=== PATIENT | male | born 1980 | race Caucasian/White ===

== ENCOUNTER 2020-10-13 19:04 | Emergency (ER) | payer OTHER, SELFPAY ==
[2020-10-13 20:13] VITALS: BP 134/116; PULSE 103; RESP 20; TEMP 36.7; O2SAT 95
--- NOTE | 2020-10-13 22:34 | PC.NURSE ---
1st call no answer
--- NOTE | 2020-10-13 22:44 | PC.NURSE ---
2nd call no answer
== END 2020-10-13 22:52 | disposition left against medical advice (07) ==
LOC: ANHED 22:49
DX: R05 Cough (principal)
CPT/HCPCS: 99199

== ENCOUNTER 2020-10-25 16:48 | Inpatient (IN) | payer OTHER, SELFPAY ==
--- NOTE | ~2020-10-25 | CT_ITS ---
EXAMINATION: CT abdomen pelvis w con DATE: 10/25/2020 19:01 INDICATION: Abdominal pain TECHNIQUE: Computed tomography (CT) of the abdomen and pelvis was performed with 100 mL Omnipaque-350 intravenous contrast. Automated exposure control and iterative reconstruction technique were employe d. The dose-length product was 303.69 mGy-cm. COMPARISON: None FINDINGS: Lung bases are clear. Heart size is normal. No pericardial or pleural effusion. Small sliding-type hi atal hernia. Diffuse hepatic steatosis. Common bile duct is dilated to 7 mm but there is no intrahepa tic biliary ductal dilation. Gallbladder, spleen, pancreas, bilateral adrenal glands and kidneys are normal. Bowels including the appendix are normal. Decompressed bladder is normal. No free intraperito brent gas or fluid. No pathologically enlarged abdominal or pelvic lymphadenopathy. Mild lower thoraci c kyphosis with chronic mild anterior wedging at T9-T12. IMPRESSION: 1. Common bile duct mildly dilated to 7 mm with no intrahepatic biliary ductal dilation. Correlate wi th liver function tests and could consider MRCP for further evaluation. 2. Marked diffuse hepatic steatosis. 3. Small sliding-type hiatal hernia. Reviewed, dictated and finalized at location A. IMPRESSION: 1. Common bile duct mildly dilated to 7 mm with no intrahepatic biliary ductal dilation. Correlate with liver function tests and could consider MRCP for furth er evaluation. 2. Marked diffuse hepatic steatosis. 3. Small sliding-type hiatal hernia.
[2020-10-25 16:53] VITALS: BP 153/94; PULSE 119; RESP 22; TEMP 36.4; O2SAT 97
--- NOTE | 2020-10-25 16:59 | ECG_ITS ---
Measurements Intervals [place] Rate: 102 P: 12 [place]: 135 QRS: -28 QRSD: 89 T: 63 QT: 340 QTc: 445 Interpretive Statements SINUS TACHYCARDIA FREQUENT VENTRICULAR PREMATURE COMPLEXES POSSIBLE LEFT ATRIAL ENLARGEMENT BORDERLINE R WAVE PROGRESSION, ANTERIOR LEADS BORDERLINE ST-T WAVE ABNORMALITY- HIGH LATERAL LEADS ABNORMAL ECG Electronically Signed On 10-25-2020 20:09:04 CDT by Adam Wallace D.O.
[2020-10-25 17:18] LABS: Basophils Percent Auto 0.1 % (0.2-1.2); Eosinophils Percent Auto 0.1 % (0-4.4); Hematocrit 51.7 % (42.0-52.0); Hemoglobin 17.5 g/dL (14.0-18.0); Immature Granulocyte Absolute 0.02 K/mm3 (0.00-0.031); Immature Granulocyte Percent A 0.2 % (0-0.5); Lymphocytes Absolute Auto 1.36 K/mm3 (0.9-3.2); Lymphocytes Percent Auto 15.4 % (18.3-44.2); Mean Corpuscular HGB Conc 33.8 g/dl (32-36); Mean Corpuscular Hemoglobin 32.1 pg (26-34); Mean Corpuscular Volume 94.9 fl (80-100); Mean Platelet Volume 9.2 fl (7.4-10.4); Monocytes Percent Auto 11.6 % (2.6-8.5); Neutrophils Absolute Auto 6.4 K/mm3 (1.3-6.7); Neutrophils Percent Auto 72.6 % (45.5-73.1); Platelet Count Result 236 k/mm3 (150-375); Red Blood Count 5.45 M/mm3 (4.6-6.20); Red Cell Distribution Width 13.9 % (11.5-14.5); White Blood Count 8.8 K/mm3 (4.5-10.0)
[2020-10-25 17:29] LABS: Alanine Aminotransferase 358 U/L (4-50); Albumin Level 4.7 g/dL (3.5-5.1); Alkaline Phosphatase 283 U/L (38-126); Anion Gap 15 mmol/L (8-16); Aspartate Amino Transferase 734 U/L (17-59); Bilirubin,Total 2.1 mg/dL (0.2-1.3); Blood Urea Nitrogen 10 mg/dL (9-20); Calcium 9.3 mg/dL (8.4-10.2); Carbon Dioxide 33 mmol/L (22-30); Chloride 90 mmol/L (98-107); Estimated CRCL calculation 119 ml/min; Estimated Glomerular Filt Rate > 60; Glucose 125 mg/dL (65-110); Lipase 226 U/L (23-300); Potassium 3.6 mmol/L (3.4-5.0); Sodium 138 mmol/L (137-145)
--- NOTE | 2020-10-25 18:32 | ED.ALCOHOL ---
HPI - Alcohol General Chief Complaint: Alcohol Stated Complaint: n/v, drinking ETOH on methadone Time Seen by Provider: 10/25/20 18:00 History of Present Illness HPI narrative: Patient presents with nausea and vomiting. Patient ports a history of alcohol abuse and severe withdrawal requiring admission. [place] last admission was a couple months ago at [facility]. Reports he required intubation at that time since then he reported sore throat that caused him to drink heavily over these past couple months. For the past couple days has been unable to eat or drink anything and is concerned saline to come in for evaluation. Denies any abdominal pain denies any dizziness reports he is feels terrible all over. Related Data Allergies Allergy/AdvReac Type Severity Reaction Status Date / Time codeine Allergy Mild Verified 12/15/18 21:05 Review of Systems Review of Systems: CONSTITUTIONAL: Denies fever, chills, or sweats. EYES: Denies visual changes, redness, or discharge. ENT: Denies rhinorrhea, congestion, sore throat, or otalgia. CARDIOVASCULAR: Denies chest pain, palpitations, or edema. RESPIRATORY: Denies cough or dyspnea. GASTROINTESTINAL: Denies abdominal pain, or diarrhea. GENITOURINARY: Denies dysuria or hematuria. SKIN: Denies rash or itching. MUSCULOSKELETAL: Denies back pain, joint pain, or myalgia. NEUROLOGIC: Denies headache, numbness, dizziness, or weakness. PSYCHIATRIC: Denies anxiety or depression. All systems reviewed & are unremarkable except as noted in HPI and below Exam Narrative: GENERAL: Well-appearing, well-nourished, with active emesis HEAD: Normocephalic, atraumatic. EYES: PERRLA and EOMI. ENT: Nares clear, no rhinorrhea or epistaxis. Mucous membranes moist. NECK: Supple. No masses. No JVD CHEST: Clear to auscultation. No respiratory distress. No wheezes rales or rhonchi HEART: Regular rate and rhythm. No murmur heard. Normal peripheral pulses. ABDOMEN: Moderate diffuse tenderness nondistended EXTREMITIES: Normal range of motion. No edema. SKIN: Warm, dry, no rash. NEURO: No focal deficits. Alert and oriented x3. PSYCH: Normal mood and affect. Course Reevaluation(s) Reevaluation #1: Patient reports continues have symptoms labs concerning for alcoholic hepatitis. Imaging without acute process Case discussed with Dr. Mendez who agrees symptoms are likely alcoholic hepatitis. We will continue supportive therapies unable to have patient p.o. tolerant will admit for further management Date: 10/25/20 Time: 19:44 Vital Signs Vital signs: Vital Signs Temperature 36.4 C 10/25/20 16:53 Pulse Rate 119 H 10/25/20 16:53 Respiratory Rate 22 H 10/25/20 16:53 Blood Pressure 153/94 H 10/25/20 16:53 Pulse Oximetry 97 10/25/20 16:53 Temperature 36.4 C 10/25/20 16:53 Pulse Rate 78 10/25/20 20:36 Respiratory Rate 13 10/25/20 20:36 Blood Pressure 157/110 H 10/25/20 20:36 Pulse Oximetry 97 10/25/20 20:36 MDM - Alcohol MDM Narrative Medical decision making narrative: Patient presents with nausea vomiting and p.o. intolerance over the past 5 days patient ports symptoms related to his alcohol binge since his prior admission proxy 1 month ago. Patient had no active emesis during evaluation. Labs imaging obtained labs notable for elevated LFTs imaging clinically unremarkable for acute process. Given patient's elevated LFTs primary concerns for alcoholic hepatitis. Given patient's p.o. intolerance here in the ER patient was admitted for further management and laboratory trending Lab Data Result diagrams: 10/25/20 16:58 10/25/20 16:59 Labs: Lab Results 10/25/20 10/25/20 10/25/20 Range/Units 16:58 16:59 18:00 WBC 8.8 (4.5-10.0) K/mm3 RBC 5.45 (4.6-6.20) M/mm3 Hgb 17.5 (14.0-18.0) g/dL Hct 51.7 (42.0-52.0) % MCV 94.9 (80-100) fl MCH 32.1 (26-34) pg MCHC 33.8 (32-36) g/dl RDW 13.9 (11.5-14.5) % Plt Count 236 (
[2020-10-25] MEDS: SODIUM CHLORIDE 0.9% IV 1,000 ML 999 ML IV CONT (18:53)
[2020-10-25] MEDS: ONDANSETRON INJ 4 MG/2 ML VIAL IV PUSH ×2 (18:53→19:51)
[2020-10-25] MEDS: KETOROLAC 15 MG/ML VIAL (*BKC) IV PUSH (19:51)
[2020-10-25 19:57] LABS: Beta-Hydroxybutyrate/Acetoacetate 0.07 mmol/L (0.02-0.27)
[2020-10-25 20:13] LABS: Ethanol 214 mg/dL (<10)
[2020-10-25] MEDS: PROMETHAZINE HCL 25 MG/ML AMPUL 12.5 MG IV PUSH (20:29)
[2020-10-25 20:36] VITALS: BP 157/110; PULSE 78; RESP 13; O2SAT 97
[2020-10-25 21:58] LABS: Add Urine Microscopic? YES; Appearance Urine Clear (Clear); Bilirubin Urine Negative (Negative); Blood Urine Negative (Negative); Color Urine Yellow (Yellow); Glucose Urine UA Negative (Negative); Ketones Urine Negative (Negative); Leukocyte Esterase Ur Negative LEU/UL (Negative); Nitrate Urine Negative (Negative); Protein Urine 1+ mg/dL (Negative); WBC Urine 0-3 /hpf
[2020-10-25] MEDS: LORazepam INJ (*CRX) 2 MG/ML VIAL 0.5 MG IV PUSH (22:00)
[2020-10-25 22:03] LABS: Amphetamine Screen Urine Negative (Negative); Barbiturate Screen Urine Positive (Negative); Benzodiazepines Screen Urine Positive (Negative); Cannabinoid Screen Urine Negative (Negative); Cocaine Screen Urine Negative (Negative); Methadone Screen Urine Positive (Negative); Opiate Screen Urine Negative (Negative); Phencyclidine Screen Urine Negative (Negative)
[2020-10-25 22:04] LABS: INR 1.2; Prothrombin Time 14.6 Seconds (11.1-14.7)
[2020-10-25 22:05] LABS: Specific Grav Ur 1.005 (1.001-1.035)
[2020-10-25 22:29] VITALS: BP 163/119; PULSE 77; RESP 12; O2SAT 98
--- NOTE | 2020-10-25 23:40 | ADMGEN ---
This patient, Guido Villagomez, was admitted to 2 Medical Room 256-. Patient/family oriented to hospital policies and general routines including ID bracelet, bed and alarms, visiting hours, pain management, procedures, bathroom and other care routines, personal items, smoking policy, room service/diet, and visiting hours. Information on how to activate the Rapid Response Team has been discussed. Patient/Family are encouraged to report perceived risks to care and to ask questions if they do not understand what they are told or what they should do.
[2020-10-25 23:42] VITALS: BMI 23.2
[2020-10-25 23:43] VITALS: BP 157/98; PULSE 96; RESP 18; TEMP 36.2; O2SAT 99
[2020-10-26] VITALS (16 sets, daily range): BP systolic 143–162; BP diastolic 89–97; PULSE 60–110; RESP 16–21; TEMP 36.1–37.2; O2SAT 97–100
[2020-10-26] MEDS: LACTATED RINGERS 1,000 ML 125 ML IV CONT ×2 (00:03→07:55)
[2020-10-26] MEDS: ONDANSETRON INJ 4 MG/2 ML VIAL IV PUSH ×5 (00:07→20:20)
[2020-10-26] MEDS: chlordiazePOXIDE (*CRX) 25 MG CAPSULE 50 MG PO ×4 (00:47→17:36)
[2020-10-26] MEDS: LORazepam INJ (*CRX) 2 MG/ML VIAL 1 MG IV PUSH ×5 (00:48→20:19)
--- NOTE | 2020-10-26 01:20 | PM.IMHP ---
H&P: HPI History of Present Illness Date/Time: 10/26/20 01:20 Chief Complaint: nausea vomiting Narrative: the patient is a 40-year-old male with history of alcohol abuse, his history of alcohol withdrawal with DTs in the past requiring intubation presents with nausea and vomiting over the past few days. He also reports continued drinking since past couple months. He reports for the past couple of days he has not been able to eat or drink and hence came in for evaluation. He denies any abdominal pain dizziness. He feels terrible and has generalized pain and achiness all over his body. No fever or chills per se. in the ED he was noted to have alcohol level of 214 UDS positive for benzos barbiturates and methadone urine is negative he had elevated liver enzymes with AST ALT in 100s Diane phosphorus elevated in 200s metabolic alkalosis INR of 1.2. CT scan of the abdomen was done which showed common bile duct mildly dilated to 7 mm with no intrahepatic biliary duct dilatation. And marked diffuse hepatic steatosis. Since admission he has developed some tremors suggestive of alcohol withdrawal. He also states he is on methadone 160 mg every day and has been taking it every day however he was throwing up and hands thinks might not have absorbed as much. Review of Systems Review of Systems: - CONSTITUTIONAL: Denies weight loss, fever and Reports chills. - HEENT: Denies changes in vision and hearing - RESPIRATORY: Denies SOB and cough. - CV: Denies palpitations and CP. - GI: Denies abdominal pain, reports nausea, vomiting and denies diarrhea. - : Denies dysuria and urinary frequency. - MSK: reports myalgia and denies joint pain. - SKIN: Denies rash and pruritus. - NEUROLOGICAL: Denies headache and syncope. - PSYCHIATRIC: Denies recent changes in mood. Denies anxiety and depression. All systems reviewed & are unremarkable except as noted in HPI and below Constitutional: Constitutional: Reports fatigue and Reports weakness Neurologic: Reports weakness Endocrine: Endocrine: Reports fatigue [facility] Family History Family History (Updated 10/25/20 @ 23:50 by Mary Parsons RN) Father Throat cancer Social History Social History Smoking packs per day: 1 Smoking cigarettes per day: 20.0 Years smoked: 20 Smoking pack-years: 20.00 Smoking status: Current every day smoker Tobacco type: cigarettes Alcohol intake: current Drinks per week: 40 Substance use type: heroin Other substance usage details: unsure what else he took Spiritual care concerns: No Meds Home Medications and Allergies Home Medications Medication Instructions Recorded Confirmed Type methadone 160 mg PO DAILY 10/25/20 10/25/20 History Allergies Allergy/AdvReac Type Severity Reaction Status Date / Time codeine Allergy Mild Verified 12/15/18 21:05 Vital Signs Vital Signs - 24 hr 10/25/20 16:53 10/25/20 20:36 10/25/20 22:29 Temperature 97.6 F Pulse Rate 119 H 78 77 Pulse Rate [Monitor] Respiratory Rate 22 H 13 12 Blood Pressure 153/94 H 157/110 H 163/119 H Pulse Oximetry 97 97 98 10/25/20 23:43 10/26/20 00:17 10/26/20 00:38 Temperature 97.2 F L Pulse Rate 96 90 Pulse Rate [Monitor] 110 H Respiratory Rate 18 Blood Pressure 157/98 H Pulse Oximetry 99 Exam Narrative: GENERAL: Well-appearing, well-nourished, tremulous, in mild distress HEAD: Normocephalic, atraumatic. EYES: PERRLA and EOMI. ENT: Nares clear, no rhinorrhea or epistaxis. Mucous membranes dry NECK: Supple. No masses. No JVD CHEST: Clear to auscultation. No respiratory distress. No wheezes rales or rhonchi HEART: Regular rate and rhythm. No murmur heard. Normal peripheral pulses. ABDOMEN: soft, mild distension mild tenderness diffuse the present no organomegaly EXTREMITIES: Normal range of motion. No edema. SKIN: Warm, dry, no rash. NEURO: No
[2020-10-26] MEDS: cloNIDine HCL 0.1 MG TABLET PO ×3 (01:56→17:36)
[2020-10-26 05:46] LABS: Basophils Percent Auto 0.5 % (0.2-1.2); Eosinophils Percent Auto 0.3 % (0-4.4); Hematocrit 39.6 % (42.0-52.0); Hemoglobin 13.5 g/dL (14.0-18.0); Immature Granulocyte Absolute 0.02 K/mm3 (0.00-0.031); Immature Granulocyte Percent A 0.2 % (0-0.5); Lymphocytes Absolute Auto 1.81 K/mm3 (0.9-3.2); Lymphocytes Percent Auto 20.6 % (18.3-44.2); Mean Corpuscular HGB Conc 34.1 g/dl (32-36); Mean Corpuscular Hemoglobin 32.4 pg (26-34); Mean Platelet Volume 8.8 fl (7.4-10.4); Monocytes Percent Auto 11.8 % (2.6-8.5); Neutrophils Absolute Auto 5.8 K/mm3 (1.3-6.7); Neutrophils Percent Auto 66.6 % (45.5-73.1); Platelet Count Result 169 k/mm3 (150-375); Red Blood Count 4.17 M/mm3 (4.6-6.20); Red Cell Distribution Width 13.4 % (11.5-14.5); White Blood Count 8.8 K/mm3 (4.5-10.0)
[2020-10-26 07:01] LABS: Alanine Aminotransferase 232 U/L (4-50); Albumin Level 3.1 g/dL (3.5-5.1); Alkaline Phosphatase 192 U/L (38-126); Anion Gap 8 mmol/L (8-16); Aspartate Amino Transferase 619 U/L (17-59); Bilirubin,Total 2.5 mg/dL (0.2-1.3); Blood Urea Nitrogen 11 mg/dL (9-20); Calcium 8.2 mg/dL (8.4-10.2); Carbon Dioxide 32 mmol/L (22-30); Chloride 94 mmol/L (98-107); Estimated CRCL calculation 119 ml/min; Estimated Glomerular Filt Rate > 60; Glucose 46 mg/dL (65-110); Potassium 3.6 mmol/L (3.4-5.0); Sodium 134 mmol/L (137-145)
[2020-10-26 07:44] LABS: Glucose Point of Care 110 mg/dl (65-105)
[2020-10-26 07:44] LABS: Glucose Point of Care 60 mg/dl (65-105)
[2020-10-26] MEDS: methADONE HCL (*CRX) 10 MG TABLET 160 MG PO (10:26)
[2020-10-26] MEDS: NICOTINE (*PBKC) 21 MG PATCH 1 PATCH TRANSDERM (11:30)
--- NOTE | 2020-10-26 13:40 | PM.IMPN ---
Progress Note: A&P Assessment and Plan (1) Alcohol withdrawal: Qualifiers: Complication of substance-induced condition: uncomplicated Qualified Code(s): F10.230 - Alcohol dependence with withdrawal, uncomplicated Code(s): F10.239 - Alcohol dependence with withdrawal, unspecified Status: Acute Assessment and Plan: -Patient would like to stop drinking alcohol, last drink 2 days ago, currently withdrawing, continue Librium and clonidine scheduled and will watch LFTs. CIWA protocol with p.r.n. Ativan q.4 hours. He was intubated in the past, will continue monitoring. -currently symptoms are tremors, no hallucinations, mentation is intact, oriented -Zofran for nausea -continue IV fluids (2) Alcoholic hepatitis: Qualifiers: Ascites presence: unspecified Qualified Code(s): K70.10 - Alcoholic hepatitis without ascites Code(s): K70.10 - Alcoholic hepatitis without ascites Status: Acute Assessment and Plan: Discriminant function checked, not indicated for steroids at this time. Will trend LFTs. supportive care (3) Alcohol abuse: Code(s): F10.10 - Alcohol abuse, uncomplicated Status: Acute Assessment and Plan: Will provide resources for alcoholics anonymous (4) Opiate dependence: Qualifiers: Substance use status: in remission Qualified Code(s): F11.21 - Opioid dependence, in remission Code(s): F11.20 - Opioid dependence, uncomplicated Status: Acute Assessment and Plan: -Longstanding use of methadone, continue home methadone 160 mg daily, confirmed with methadone clinic on 10/26/2020 -he may also used heroin (5) Nicotine dependence: Qualifiers: Nicotine product type: cigarettes Substance use status: uncomplicated Qualified Code(s): F17.210 - Nicotine dependence, cigarettes, uncomplicated Code(s): F17.200 - Nicotine dependence, unspecified, uncomplicated Status: Acute Assessment and Plan: Will provide nicotine patch as needed (6) Inspiratory stridor: Code(s): R06.1 - Stridor Status: Acute Assessment and Plan: Patient has inspiratory stridor/dysphonia since intubation for alcoholic withdrawal in May or July of this year. Patient can follow-up outpatient with ENT. Additional Plan Diet: Regular DVT prophylaxis: Lovenox Code status: Full code Disposition: Pending clinical course, likely outpatient alcoholic rehab after completing detox Time Spent With Patient Time with patient: 15 - 25 minutes Subjective Date/time seen: 10/26/20 13:40 Patient seen examined. We verified his methadone dose today, 160 mg daily. He is going through alcohol withdrawals CIWA score 12, will continue closely monitoring him as he has had significant withdrawals requiring intubation in the past. He has some dysphonia from previous intubation back in May and was told it will go away on its own. I informed we can give him a outpatient referral to ENT. He came to the hospital for alcohol detox, we will continue detox see him. Has been 2 days since last drink. This is on pretty high dose Librium 50 mg q.6 hours was we will keep for now considering his withdrawals. He feels slightly nauseous for which we have Zofran ordered. Patient denies fever, chills, diarrhea, emesis, constipation, chest pain, abdominal pain. Review of Systems Review of Systems: All systems reviewed & are unremarkable except as noted in HPI and below Exam Narrative: - GENERAL: Pleasant male in no acute distress sitting comfortably in bed, clearly withdrawing with tremors - EYES: EOMI. Slightly icteric sclera. - HENT: Moist mucous membranes. Inspiratory stridor present (longstanding as per patient since previous intubation earlier this year) - LUNGS: Clear to auscultation bilaterally, no wheezing, rhonchi, or rales. - CARDIOVASCULAR: Regular rate and rhythm. No murmur. No JVD. - ABDOMEN: Soft, non-tender and non-diste
[2020-10-26] MEDS: LACTATED RINGERS 1,000 ML 75 ML IV CONT (14:51)
[2020-10-26] MEDS: PHARMACIST COMMUNICATION ORDER 1 EACH XX (14:59)
[2020-10-27] VITALS (12 sets, daily range): BP systolic 121–157; BP diastolic 86–96; PULSE 55–72; RESP 20; TEMP 36.1–36.6; O2SAT 98
[2020-10-27] MEDS: chlordiazePOXIDE (*CRX) 25 MG CAPSULE 50 MG PO ×4 (00:11→17:23)
[2020-10-27] MEDS: cloNIDine HCL 0.1 MG TABLET PO ×3 (00:24→17:23)
[2020-10-27] MEDS: LACTATED RINGERS 1,000 ML 75 ML IV CONT ×2 (03:56→17:23)
[2020-10-27 05:55] LABS: Hematocrit 38.6 % (42.0-52.0); Hemoglobin 12.7 g/dL (14.0-18.0); Immature Platelet Fraction Pct 2.6 % (0.9-11.2); Mean Corpuscular HGB Conc 32.9 g/dl (32-36); Mean Corpuscular Hemoglobin 32.2 pg (26-34); Mean Platelet Volume 9.2 fl (7.4-10.4); Platelet Count Result 157 k/mm3 (150-375); Red Blood Count 3.94 M/mm3 (4.6-6.20); Red Cell Distribution Width 13.2 % (11.5-14.5); White Blood Count 5.2 K/mm3 (4.5-10.0)
[2020-10-27 06:06] LABS: Alanine Aminotransferase 209 U/L (4-50); Alkaline Phosphatase 262 U/L (38-126); Anion Gap 4 mmol/L (8-16); Aspartate Amino Transferase 512 U/L (17-59); Bilirubin,Total 2.3 mg/dL (0.2-1.3); Blood Urea Nitrogen 7 mg/dL (9-20); Carbon Dioxide 34 mmol/L (22-30); Chloride 94 mmol/L (98-107); Estimated CRCL calculation 119 ml/min; Estimated Glomerular Filt Rate > 60; Glucose 89 mg/dL (65-110); Magnesium 1.1 mg/dL (1.6-2.3); Phosphorus 4.1 mg/dL (2.5-4.5); Potassium 3.1 mmol/L (3.4-5.0); Sodium 132 mmol/L (137-145)
[2020-10-27] MEDS: methADONE HCL (*CRX) 10 MG TABLET 160 MG PO (08:11)
[2020-10-27] MEDS: LORazepam INJ (*CRX) 2 MG/ML VIAL 1 MG IV PUSH ×2 (08:12→13:54)
[2020-10-27] MEDS: POTASSIUM CHLORIDE 20 MEQ TABLET 40 MEQ PO ×2 (08:12→13:58)
[2020-10-27] MEDS: NICOTINE (*PBKC) 21 MG PATCH 1 PATCH TRANSDERM (08:13)
[2020-10-27] MEDS: ONDANSETRON INJ 4 MG/2 ML VIAL IV PUSH (08:23)
[2020-10-27] MEDS: MAGNESIUM SULF 4 GM/WATER100ML 4 GM/100 ML BAG IVPB (09:41)
[2020-10-27] MEDS: PANTOPRAZOLE 40 MG TABLET PO (12:24)
--- NOTE | 2020-10-27 13:39 | PM.IMPN ---
Progress Note: A&P Assessment and Plan (1) Alcoholic hepatitis: Qualifiers: Ascites presence: unspecified Qualified Code(s): K70.10 - Alcoholic hepatitis without ascites Code(s): K70.10 - Alcoholic hepatitis without ascites Status: Acute Assessment and Plan: -LFTs are downtrending, patient was not candidate for steroids based off of discriminant function -supportive care, continue IV fluids (2) Alcohol withdrawal: Qualifiers: Complication of substance-induced condition: uncomplicated Qualified Code(s): F10.230 - Alcohol dependence with withdrawal, uncomplicated Code(s): F10.239 - Alcohol dependence with withdrawal, unspecified Status: Acute Assessment and Plan: -CIWA symptomatic protocol, continue Librium 50 mg q.6 hours, will start tapering tomorrow, continue clonidine. -resources provided for alcohol abuse (3) Nausea & vomiting: Qualifiers: Vomiting Intractability: intractable Vomiting type: unspecified Qualified Code(s): R11.2 - Nausea with vomiting, unspecified Code(s): R11.2 - Nausea with vomiting, unspecified Status: Acute Assessment and Plan: -Improved, continue p.r.n. Zofran -patient complains of epigastric pain, starting Protonix for possible gastritis and p.r.n. Tums (4) Electrolyte abnormality: Code(s): E87.8 - Other disorders of electrolyte and fluid balance, not elsewhere classified Status: Acute Assessment and Plan: -repleting magnesium and potassium, 4 g Mag today and 80 mEq potassium -secondary poor nutrition with alcohol abuse (5) Inspiratory stridor: Code(s): R06.1 - Stridor Status: Acute Assessment and Plan: Longstanding since May 2020 after intubation for alcohol withdrawal. Patient may follow-up with ENT outpatient (6) Nicotine dependence: Qualifiers: Nicotine product type: cigarettes Substance use status: uncomplicated Qualified Code(s): F17.210 - Nicotine dependence, cigarettes, uncomplicated Code(s): F17.200 - Nicotine dependence, unspecified, uncomplicated Status: Acute Assessment and Plan: Nicotine patch given (7) Alcohol abuse: Code(s): F10.10 - Alcohol abuse, uncomplicated Status: Acute Assessment and Plan: As above (8) Hypoglycemia: Code(s): E16.2 - Hypoglycemia, unspecified Status: Acute Assessment and Plan: -improved, glucose low of 46 on 10/26/20. His blood sugar improved after given some food. No history of diabetes (9) Opiate dependence: Qualifiers: Substance use status: in remission Qualified Code(s): F11.21 - Opioid dependence, in remission Code(s): F11.20 - Opioid dependence, uncomplicated Status: Acute Assessment and Plan: -Continue home methadone 160 mg daily Additional Plan Diet: Regular DVT prophylaxis: Lovenox GI prophylaxis: Protonix Code status: Full code Disposition: Pending clinical course, alcohol detox inpatient Time Spent With Patient Time with patient: 25 - 35 minutes Subjective Date/time seen: 10/27/20 13:39 Patient examined. He is getting anxious and starting to hallucinate. Today is day 3 of his alcohol detox, anticipate this should be the worst of his symptoms. We will continue Librium as is start tapering tomorrow. Continue IV fluids, patient has decreased p.o. intake. He has not had any problems on telemetry since admission, normal sinus rhythm. Complained of epigastric pain in I discussed starting PPI and p.r.n. tums. He denies fever, chills, nausea, vomiting, diarrhea. He endorses seeing hallucinations, getting frustrated about detox. Review of Systems Review of Systems: All systems reviewed & are unremarkable except as noted in HPI and below Exam Narrative: - GENERAL: Pleasant male appears anxious sitting in bed, less tremulous today however he was more somnolent, he evaluated after Ativan was give
[2020-10-28] VITALS (8 sets, daily range): BP systolic 148–154; BP diastolic 93–98; PULSE 54–96; RESP 15–21; TEMP 36–36.1; O2SAT 100
[2020-10-28] MEDS: chlordiazePOXIDE (*CRX) 25 MG CAPSULE 50 MG PO ×4 (00:43→21:25)
[2020-10-28] MEDS: cloNIDine HCL 0.1 MG TABLET PO ×3 (00:43→16:52)
[2020-10-28 06:19] LABS: Alanine Aminotransferase 166 U/L (4-50); Albumin Level 3.2 g/dL (3.5-5.1); Alkaline Phosphatase 247 U/L (38-126); Anion Gap 2 mmol/L (8-16); Aspartate Amino Transferase 322 U/L (17-59); Blood Urea Nitrogen 7 mg/dL (9-20); Calcium 8.4 mg/dL (8.4-10.2); Carbon Dioxide 30 mmol/L (22-30); Chloride 99 mmol/L (98-107); Estimated CRCL calculation 119 ml/min; Estimated Glomerular Filt Rate > 60; Glucose 113 mg/dL (65-110); Magnesium 1.8 mg/dL (1.6-2.3); Potassium 4.6 mmol/L (3.4-5.0); Sodium 131 mmol/L (137-145)
[2020-10-28] MEDS: LACTATED RINGERS 1,000 ML 75 ML IV CONT (06:41)
--- NOTE | 2020-10-28 07:10 | PM.IMPN ---
Progress Note: A&P Assessment and Plan (1) Alcoholic hepatitis: Qualifiers: Ascites presence: unspecified Qualified Code(s): K70.10 - Alcoholic hepatitis without ascites Code(s): K70.10 - Alcoholic hepatitis without ascites Status: Acute Assessment and Plan: -LFTs are downtrending, patient was not candidate for steroids based off of discriminant function -supportive care Will change fluids from LR to normal saline because of down trend in serum sodium. (2) Alcohol withdrawal: Qualifiers: Complication of substance-induced condition: uncomplicated Qualified Code(s): F10.230 - Alcohol dependence with withdrawal, uncomplicated Code(s): F10.239 - Alcohol dependence with withdrawal, unspecified Status: Acute Assessment and Plan: -[facility] symptomatic protocol, will start tapering of Librium today. I will decrease the dose from 50 mg q.6 to 50 mg q.8 are today. continue clonidine. Continue Ativan on a as needed basis based on [facility] protocol. -resources provided for alcohol abuse Blood pressure seems to be elevated today but likely as a result of alcohol withdrawal. (3) Nausea & vomiting: Qualifiers: Vomiting Intractability: intractable Vomiting type: unspecified Qualified Code(s): R11.2 - Nausea with vomiting, unspecified Code(s): R11.2 - Nausea with vomiting, unspecified Status: Acute Assessment and Plan: -Improved, continue p.r.n. Zofran -patient complains of epigastric pain, starting Protonix for possible gastritis and p.r.n. Tums (4) Electrolyte abnormality: Code(s): E87.8 - Other disorders of electrolyte and fluid balance, not elsewhere classified Status: Acute Assessment and Plan: -repleting magnesium and potassium is indicated -secondary to poor nutrition with alcohol abuse (5) Inspiratory stridor: Code(s): R06.1 - Stridor Status: Acute Assessment and Plan: Longstanding since May 2020 after intubation for alcohol withdrawal. Patient may follow-up with ENT outpatient He is not in any respiratory distress and not complaining of any shortness of breath or cough (6) Nicotine dependence: Qualifiers: Nicotine product type: cigarettes Substance use status: uncomplicated Qualified Code(s): F17.210 - Nicotine dependence, cigarettes, uncomplicated Code(s): F17.200 - Nicotine dependence, unspecified, uncomplicated Status: Acute Assessment and Plan: Nicotine patch (7) Alcohol abuse: Code(s): F10.10 - Alcohol abuse, uncomplicated Status: Acute Assessment and Plan: As above Continue thiamine and folate. (8) Hypoglycemia: Code(s): E16.2 - Hypoglycemia, unspecified Status: Acute Assessment and Plan: -improved, glucose low of 46 on 10/26/20. His blood sugar improved after given some food. No history of diabetes (9) Opiate dependence: Qualifiers: Substance use status: in remission Qualified Code(s): F11.21 - Opioid dependence, in remission Code(s): F11.20 - Opioid dependence, uncomplicated Status: Acute Assessment and Plan: -Continue home methadone 160 mg daily Additional Plan Diet: Regular DVT prophylaxis: Lovenox GI prophylaxis: Protonix Code status: Full code Disposition: Pending clinical course, alcohol detox inpatient Subjective Date/time seen: 10/28/20 07:10 He is still tremulous. He is requiring 2 doses of Ativan on p.r.n. basis in addition to Librium. He denied have any chest pain shortness of breath nausea vomiting abdominal pain visual symptoms weakness in any part of his body. Review of Systems Review of Systems: All systems reviewed & are unremarkable except as noted in HPI and below Exam Narrative: - GENERAL: Pleasant male appears anxious sitting in bed - HENT: Moist mucous membranes. Very audible inspiratory stridor present (longstanding as per patient
[2020-10-28] MEDS: SODIUM CHLORIDE 0.9% IV 1,000 ML 75 ML IV CONT ×2 (08:08→21:24)
[2020-10-28] MEDS: PANTOPRAZOLE 40 MG TABLET PO (08:42)
[2020-10-28] MEDS: NICOTINE (*PBKC) 21 MG PATCH 1 PATCH TRANSDERM (08:42)
[2020-10-28] MEDS: methADONE HCL (*CRX) 10 MG TABLET 160 MG PO (08:44)
[2020-10-29] MEDS: cloNIDine HCL 0.1 MG TABLET PO ×2 (01:04→08:44)
[2020-10-29 04:00] VITALS: PULSE 68
[2020-10-29] MEDS: chlordiazePOXIDE (*CRX) 25 MG CAPSULE 50 MG PO (05:55)
[2020-10-29 06:00] VITALS: BP 145/96; PULSE 53; RESP 20; TEMP 36.7; O2SAT 98
[2020-10-29 06:01] LABS: Alanine Aminotransferase 164 U/L (4-50); Albumin Level 3.7 g/dL (3.5-5.1); Alkaline Phosphatase 243 U/L (38-126); Anion Gap 6 mmol/L (8-16); Aspartate Amino Transferase 260 U/L (17-59); Bilirubin,Total 1.1 mg/dL (0.2-1.3); Blood Urea Nitrogen 6 mg/dL (9-20); Calcium 8.7 mg/dL (8.4-10.2); Carbon Dioxide 28 mmol/L (22-30); Chloride 98 mmol/L (98-107); Estimated CRCL calculation 119 ml/min; Estimated Glomerular Filt Rate > 60; Glucose 104 mg/dL (65-110); Magnesium 1.8 mg/dL (1.6-2.3); Potassium 4.4 mmol/L (3.4-5.0); Sodium 132 mmol/L (137-145)
[2020-10-29] MEDS: PANTOPRAZOLE 40 MG TABLET PO (08:44)
[2020-10-29] MEDS: NICOTINE (*PBKC) 21 MG PATCH 1 PATCH TRANSDERM (08:44)
[2020-10-29] MEDS: methADONE HCL (*CRX) 10 MG TABLET 160 MG PO (08:49)
--- NOTE | 2020-10-29 13:45 | PM.DS ---
DS: Admitting Diagnosis Admitting Diagnosis Alcoholic hepatitis Alcoholic gastritis Alcohol abuse Alcohol withdrawal Opiate dependence currently on methadone Nausea vomiting DS: Discharge Diagnosis Discharge Diagnosis (1) Alcoholic hepatitis: Qualifiers: Ascites presence: unspecified Qualified Code(s): K70.10 - Alcoholic hepatitis without ascites Code(s): K70.10 - Alcoholic hepatitis without ascites Status: Acute Assessment and Plan: -LFTs are downtrending, patient was not candidate for steroids based off of discriminant function -supportive care He was on LR before which was switched to normal saline because of some hyponatremia. Serum sodium was 130 today on the day of discharge. (2) Alcohol withdrawal: Qualifiers: Complication of substance-induced condition: uncomplicated Qualified Code(s): F10.230 - Alcohol dependence with withdrawal, uncomplicated Code(s): F10.239 - Alcohol dependence with withdrawal, unspecified Status: Acute Assessment and Plan: -[facility] symptomatic protocol. He was started on Librium on standing basis which was weaned down and will be discharged on 3 more days of Librium. He did require but very few doses of Ativan on p.r.n. basis as per [facility] protocol. Continue thiamine and folate and will discharge on both. -resources provided for alcohol abuse Blood pressure seems to be elevated today but likely as a result of alcohol withdrawal. (3) Nausea & vomiting: Qualifiers: Vomiting Intractability: intractable Vomiting type: unspecified Qualified Code(s): R11.2 - Nausea with vomiting, unspecified Code(s): R11.2 - Nausea with vomiting, unspecified Status: Acute Assessment and Plan: -Improved, continue p.r.n. Zofran -patient complains of epigastric pain, starting Protonix for possible gastritis and p.r.n. Tums (4) Electrolyte abnormality: Code(s): E87.8 - Other disorders of electrolyte and fluid balance, not elsewhere classified Status: Acute Assessment and Plan: - repleted. -secondary to poor nutrition with alcohol abuse (5) Inspiratory stridor: Code(s): R06.1 - Stridor Status: Acute Assessment and Plan: Longstanding since May 2020 after intubation for alcohol withdrawal. Patient may follow-up with ENT outpatient He is not in any respiratory distress and not complaining of any shortness of breath or cough (6) Nicotine dependence: Qualifiers: Nicotine product type: cigarettes Substance use status: uncomplicated Qualified Code(s): F17.210 - Nicotine dependence, cigarettes, uncomplicated Code(s): F17.200 - Nicotine dependence, unspecified, uncomplicated Status: Acute Assessment and Plan: Nicotine patch (7) Alcohol abuse: Code(s): F10.10 - Alcohol abuse, uncomplicated Status: Acute Assessment and Plan: As above Continue thiamine and folate and he will be discharged on both. (8) Hypoglycemia: Code(s): E16.2 - Hypoglycemia, unspecified Status: Acute Assessment and Plan: -improved, glucose low of 46 on 10/26/20. His blood sugar improved after given some food. No history of diabetes (9) Opiate dependence: Qualifiers: Substance use status: in remission Qualified Code(s): F11.21 - Opioid dependence, in remission Code(s): F11.20 - Opioid dependence, uncomplicated Status: Acute Assessment and Plan: -Continue home methadone 160 mg daily. He was given a dose of methadone today before discharge. DS: Summary Hospital Course Hospital Course: As above Time Spent with Patient Time attestation: Total time spent providing and/or coordinating discharge services: >35 minutes Exam Narrative: - GENERAL: Pleasant male appears anxious sitting in bed - HENT: Moist mucous membranes. - LUNGS: Clear to auscultation bilaterally, no wheezing, rhonchi, or rales. - CARDIO
== END 2020-10-29 11:20 | disposition home or self-care (01) | DRG 773 ==
LOC: ANHED 21:58 → ANH2MED 22:44
PROVIDERS: Emergency Medicine; Student in an Organized Health Care Education/Training Program; Admitting Provider Internal Medicine; Emergency Provider Emergency Medicine; Visit Provider Internal Medicine Critical Care Medicine
DX: F10.239 Alcohol dependence with withdrawal, unspecified (principal); K70.10 Alcoholic hepatitis without ascites; F11.23 Opioid dependence with withdrawal; E87.8 Other disorders of electrolyte and fluid balance, not elsewhere classified; K29.20 Alcoholic gastritis without bleeding; E16.2 Hypoglycemia, unspecified; F17.210 Nicotine dependence, cigarettes, uncomplicated; Y90.7 Blood alcohol level of 200-239 mg/100 ml; E86.0 Dehydration; R06.1 Stridor; E87.1 Hypo-osmolality and hyponatremia
CPT/HCPCS: 36415; 74177; 80053; 80307; 81001; 82010; 82948; 83690; 83735; 84100; 85025; 85027; 85055; 85610; 85730; 93005; 96361; 96374; 96375; 96376; 99285; A9270; J1885; J2060; J2405; J2550; J3475; J7030; J7120; Q9967

== ENCOUNTER 2020-12-25 14:24 | Emergency (ER) | payer OTHER, SELFPAY ==
[2020-12-25] VITALS (14 sets, daily range): BP systolic 116–146; BP diastolic 76–101; PULSE 83–109; RESP 13–21; TEMP 37; O2SAT 94–98
--- NOTE | ~2020-12-25 | CT_ITS ---
EXAMINATION: CT brain wo con DATE: 12/25/2020 15:50 INDICATION: Altered mental status. TECHNIQUE: Computed tomography (CT) of the head was performed without intravenous contrast. The mA wa s adjusted according to patient size. Iterative reconstruction technique was employed. The dose-lengt h product was 605.33 mGy-cm. COMPARISON: Head CT 11/26/2009 FINDINGS: There is no intracranial hemorrhage, acute infarction, or abnormal intracranial mass lesion . The ventricles are normal in size. The orbits are normal. There is mild mucosal thickening in the p aranasal sinuses. The mastoid air cells are normal. IMPRESSION: 1. Normal brain. Reviewed, dictated and finalized at location A. IMPRESSION: 1. Normal brain.
[2020-12-25] MEDS: LORazepam INJ (*CRX) 2 MG/ML VIAL IM ×2 (14:50→22:15)
[2020-12-25 15:03] LABS: Basophils Percent Auto 0.4 % (0.2-1.2); Eosinophils Absolute Auto 0.1 K/mm3 (0-0.3); Eosinophils Percent Auto 0.6 % (0-4.4); Hematocrit 49.6 % (42.0-52.0); Hemoglobin 16.8 g/dL (14.0-18.0); Immature Granulocyte Absolute 0.03 K/mm3 (0.00-0.031); Immature Granulocyte Percent A 0.3 % (0-0.5); Lymphocytes Absolute Auto 1.43 K/mm3 (0.9-3.2); Mean Corpuscular HGB Conc 33.9 g/dl (32-36); Mean Corpuscular Hemoglobin 31.8 pg (26-34); Mean Corpuscular Volume 93.8 fl (80-100); Mean Platelet Volume 9.7 fl (7.4-10.4); Monocytes Absolute Auto 1.1 K/mm3 (0.1-0.6); Monocytes Percent Auto 11.2 % (2.6-8.5); Neutrophils Absolute Auto 7.5 K/mm3 (1.3-6.7); Neutrophils Percent Auto 73.5 % (45.5-73.1); Platelet Count Result 338 k/mm3 (150-375); Red Blood Count 5.29 M/mm3 (4.6-6.20); Red Cell Distribution Width 12.3 % (11.5-14.5); White Blood Count 10.2 K/mm3 (4.5-10.0)
[2020-12-25 15:11] LABS: Ethanol 95 mg/dL (<10)
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
[2020-12-25 16:20] LABS: Thyroid Stimulating Hormone 0.815 uIU/mL (0.465-4.680)
[2020-12-25 16:26] LABS: Alanine Aminotransferase 67 U/L (4-50); Albumin Level 4.4 g/dL (3.5-5.1); Alkaline Phosphatase 81 U/L (38-126); Anion Gap 10 mmol/L (8-16); Aspartate Amino Transferase 75 U/L (17-59); Bilirubin,Total 0.8 mg/dL (0.2-1.3); Blood Urea Nitrogen 3 mg/dL (9-20); Calcium 8.9 mg/dL (8.4-10.2); Carbon Dioxide 29 mmol/L (22-30); Chloride 99 mmol/L (98-107); Estimated CRCL calculation 178 ml/min; Estimated Glomerular Filt Rate > 60; Glucose 97 mg/dL (65-110); Potassium 3.6 mmol/L (3.4-5.0); Sodium 138 mmol/L (137-145)
[2020-12-25 16:54] LABS: Add Urine Microscopic? YES; Appearance Urine Clear (Clear); Bilirubin Urine Negative (Negative); Blood Urine Negative (Negative); Color Urine Yellow (Yellow); Glucose Urine UA Negative (Negative); Ketones Urine Negative (Negative); Leukocyte Esterase Ur Negative LEU/UL (Negative); Mucus Urine Rare /lpf; Nitrate Urine Negative (Negative); Protein Urine Negative (Negative); RBC Urine 0-2 /hpf (0-2); Specific Grav Ur 1.008 (1.001-1.035); WBC Urine 0-3 /hpf
[2020-12-25 17:04] LABS: Barbiturate Screen Urine Negative (Negative); Benzodiazepines Screen Urine Negative (Negative)
[2020-12-25 17:10] LABS: Cannabinoid Screen Urine Negative (Negative); Methadone Screen Urine Negative (Negative); Opiate Screen Urine Negative (Negative); Phencyclidine Screen Urine Negative (Negative)
[2020-12-25 17:37] LABS: Amphetamine Screen Urine Positive (Negative)
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
[2020-12-25] MEDS: SODIUM CHLORIDE 0.9% IV 1,000 ML 999 ML IV CONT (20:24)
--- NOTE | 2020-12-25 22:00 | PC.NURSE ---
pt aggressive and agitated. pt attempting to get out of bed and yelling that he did not do what the voices said he did. [facility] made aware, new med orders by [facility].
[2020-12-25 22:04] LABS: EDCOVIDSCREEN Negative (Negative)
[2020-12-25] MEDS: diphenhydrAMINE HCl INJ 50 MG/ML VIAL IM (22:14)
[2020-12-25] MEDS: HALOPERIDOL LACTATE 5 MG/ML VIAL IM (22:14)
[2020-12-26] VITALS (8 sets, daily range): BP systolic 118–129; BP diastolic 76–88; PULSE 79–89; RESP 14–16; TEMP 36.7; O2SAT 93–97
--- NOTE | 2020-12-26 10:12 | PC.NURSE ---
pt out of room, out of department, out of building. pt stating you are all lying bitches. I want to go home. pt was pursued on foot by mario RN, Rossi Hathaway RN, and Luiza MORGAN out of hospital towards [place]. Security called x 2 and took approx 5 min to respond. Kaylin WILCOX called but did not respond before pt back to room 15.
--- NOTE | 2020-12-26 10:17 | PC.NURSE ---
Addendum entered by Feliz Mckeon RN 12/26/20 10:19: 0915 note timeframe. Original Note: Patient stood up and ambulated from ED against the will of staff. Security was contacted, and patient was returned to room. Will continue to monitor.
--- NOTE | 2020-12-26 11:19 | PC.NURSE ---
pt. sister eboni called for pt. update. rn to call back once verbal permission from pt. obtained.
--- NOTE | 2020-12-26 11:25 | PC.NURSE ---
pt. verbalized ok to contact sister eboni at [phone]
[2021-01-29 14:54] LABS: Reference Lab Test Result None Detected
== END 2020-12-26 12:13 | disposition home or self-care (01) ==
PROVIDERS: Emergency Medicine; Emergency Provider Emergency Medicine
DX: F15.10 Other stimulant abuse, uncomplicated (principal); F10.20 Alcohol dependence, uncomplicated; Y90.4 Blood alcohol level of 80-99 mg/100 ml; F17.210 Nicotine dependence, cigarettes, uncomplicated; Z20.822 Contact with and (suspected) exposure to COVID-19
CPT/HCPCS: 36415; 70450; 80053; 80307; 81001; 84443; 85025; 87426; 96360; 96372; 99284; C9803; J1200; J1630; J2060; J7030